=== PATIENT | male | born 1960 | race Asian ===

== ENCOUNTER 2017-06-03 13:58 | Inpatient (IN) | payer OTHER ==
[~2017-06-03] VITALS: Ht 175.3 cm; Wt 78.2 kg
[2017-06-03 14:11] VITALS: BP 142/109; TEMP 98.3
[2017-06-03 15:21] LABS: PLATELET COUNT 268 K/uL (142-355)
[2017-06-03 15:38] LABS: POTASSIUM 3.8 mmol/L (3.6-5.2)
[2017-06-03 15:46] VITALS: BP 154/107; TEMP 97.5
[2017-06-03 19:30] VITALS: BP 110/86
[2017-06-03 20:56] VITALS: BP 140/96; TEMP 98.2; Ht 175.3 cm; Wt 78.2 kg
[2017-06-03 23:54] VITALS: BP 117/84; TEMP 99
[2017-06-04 04:00] VITALS: BP 105/60; TEMP 99.4
[2017-06-04 06:06] LABS: PLATELET COUNT 246 K/uL (142-355)
[2017-06-04 06:26] LABS: POTASSIUM 3.3 mmol/L (3.6-5.2)
[2017-06-04 08:21] VITALS: BP 117/78; TEMP 98.2
[2017-06-04 12:00] VITALS: BP 111/71; TEMP 98.4
[2017-06-04 16:00] VITALS: BP 125/86; TEMP 97.7
[2017-06-04 19:39] VITALS: BP 104/76; TEMP 98.4
[2017-06-05 00:26] VITALS: BP 111/76; TEMP 98.7
[2017-06-05 04:00] VITALS: BP 113/78; TEMP 98.2
[2017-06-05 05:35] LABS: PLATELET COUNT 251 K/uL (142-355)
[2017-06-05 06:07] LABS: POTASSIUM 3.7 mmol/L (3.6-5.2)
[2017-06-05 07:28] VITALS: BP 110/80; TEMP 98.2
[2017-06-05 11:40] VITALS: BP 113/78; TEMP 98.3
[2017-06-05 16:00] VITALS: BP 113/82; TEMP 98.4
[2017-06-05 20:00] VITALS: BP 118/87; TEMP 98.6
[2017-06-06] VITALS: BP 128/86; TEMP 98.4
[2017-06-06 03:51] VITALS: BP 121/82; TEMP 98
[2017-06-06 08:20] VITALS: BP 128/86; TEMP 97.8
== END 2017-06-06 13:25 | disposition home or self-care (01) | DRG 392 ==
LOC: ED 13:58 → MED/SURG 19:00
PROVIDERS: Emergency Medicine; Internal Medicine
DX: K52.89 Other specified noninfective gastroenteritis and colitis (principal); D72.828 Other elevated white blood cell count; R19.7 Diarrhea, unspecified
CPT/HCPCS: 36415; 80048; 80053; 81000; 82150; 83690; 85027; 87015; 87045; 87205; 87324; 87328; 87329; 87449; 87899; 96361; 96365; 96366; 96367; 99284; J0744; J2405; J3490; Q9963

== ENCOUNTER 2021-06-27 21:43 | Emergency (ER) | payer OTHER ==
[~2021-06-27] VITALS: Ht 175.3 cm; Wt 89.8 kg
[2021-06-27 22:11] VITALS: BP 139/99; TEMP 99
== END 2021-06-27 22:23 | disposition home or self-care (01) ==
LOC: ED 21:43
DX: S89.81XA Other specified injuries of right lower leg, initial encounter (principal); W17.89XA Other fall from one level to another, initial encounter; Y93.55 Activity, bike riding; Y92.89 Other specified places as the place of occurrence of the external cause; Z53.29 Procedure and treatment not carried out because of patient's decision for other reasons
CPT/HCPCS: 99282